=== PATIENT | male | born 1980 | race Caucasian/White ===

== ENCOUNTER 2021-12-29 10:46 | Emergency (ER) | payer SELFPAY ==
[2021-12-29 10:59] VITALS: BP 144/94; PULSE 85; RESP 20; TEMP 98.2; BMI 26.2
[2021-12-29] MEDS ORDERED: KETOROLAC TROMETHAMINE 30 MG/1 ML VIAL IM ONE (12:26)
[2021-12-29 14:24] LABS: CALCIUM 8.7 mg/dL (8.5-10.1)
[2021-12-29 14:25] LABS: ALBUMIN 3.9 g/dl (3.4-5.0); BLOOD UREA NITROGEN 13.1 mg/dL (7-18)
[2021-12-29 14:30] LABS: BILIRUBIN,TOTAL 0.8 mg/dL (0.2-1); TOT PROT 7.2 g/dl (6.4-8.2)
[2021-12-29 15:11] LABS: BASO % 0.5 % (0-2.0); EOS % 0.9 % (0-4.5); LYMPH % 11.6 % (8-40); MCH 30.4 pg (25.7-33.7); MCHC 33.4 g/dl (32.0-35.9); MEAN PLT VOLUME 8.6 fl (7.5-11.1); MONO % 8.3 % (3.8-10.2); NEUT % 78.7 % (42.8-82.8); PLATELET COUNT 257 10^3/uL (134-434); RBC 4.94 M/mm3 (4.00-5.60); RDW 13.3 % (11.9-15.9); WHITE BLOOD COUNT 7.9 K/mm3 (4.0-10.0)
[2021-12-29] MEDS ORDERED: LIDOCAINE 5% TOPICAL PATCH TP ONE (15:22)
[2021-12-29] MEDS ORDERED: LIDOCAINE 5% TOPICAL PATCH ONE (15:23)
[2021-12-29] MEDS ORDERED: LIDOCAINE PATCH REMOVAL MC SCH (22:00)
== END 2021-12-29 16:06 | disposition home or self-care (01) ==
LOC: JER 10:46
PROC: 3E023GC Introduction of Other Therapeutic Substance into Muscle, Percutaneous Approach (ICD-10-PCS; principal; 2021-12-29)
DX: R07.89 Other chest pain (principal)
CPT/HCPCS: 36415; 71046-TC-FY; 80053; 84484; 85025; 93005; 93010; 99285-25

== ENCOUNTER 2022-01-02 21:11 | Emergency (ER) | payer SELFPAY ==
[2022-01-02 21:21] VITALS: BP 130/90; PULSE 92; RESP 17; TEMP 99.1; BMI 30.2
[2022-01-02] MEDS ORDERED: METOCLOPRAMIDE HCL 10 MG TABLET (FP) PO ONE ×2 (22:09→22:33)
[2022-01-02] MEDS ORDERED: MAGNESIUM CITRATE 300 ML BOTTLE PO ONE (22:09)
[2022-01-02] MEDS ORDERED: POLYETHYLENE GLYCOL (HEALTHYLAX) 3350 17 GM PACKET PO ONE (22:15)
[2022-01-02] MEDS ORDERED: POLYETHYLENE GLYCOL (HEALTHYLAX) 3350 17 GM PACKET ONE (22:25)
[2022-01-02] MEDS ORDERED: METOCLOPRAMIDE HCL INJECTION 10 MG/2 ML VIAL ONE (22:25)
[2022-01-02] MEDS ORDERED: MAGNESIUM HYDROX 2400MG/30ML ORAL SUSPENSION 30 ML CUP PO ONE (22:27)
[2022-01-02] MEDS ORDERED: MAGNESIUM HYDROX 2400MG/30ML ORAL SUSPENSION 30 ML CUP ONE (22:28)
== END 2022-01-02 23:10 | disposition home or self-care (01) ==
LOC: JERFT 21:11
DX: K59.00 Constipation, unspecified (principal)
CPT/HCPCS: 74019-TC-FY; 99283-25